=== PATIENT | female | born 1990 | race Caucasian/White ===

== ENCOUNTER 2016-12-22 23:35 | Emergency (ER) | payer MEDICAID ==
[~2016-12-22] VITALS: Ht 162.6 cm; Wt 60.0 kg
[~2016-12-22 23:35] MED LIST: ALPR-475 PO; FLUO20CA8 PO; HYDR25CA94 PO; LORA-446 PO; NITR100C PO; QUET100T4 PO
[2016-12-23] MEDS ORDERED: ONDANSETRON 2MG/ML, 2ML ONE (00:18)
[2016-12-23] MEDS ORDERED: HYDROmorphone 1 MG/ML, 1ML ONE ×2 (00:18→01:38)
[2016-12-23] MEDS: HYDROmorphone 1 MG/ML, 1ML IVPush PRN ×2 (00:22→01:40)
[2016-12-23] MEDS ORDERED: SODIUM CHLORIDE FLUSH 10ML SYR IVF ONE (00:30)
[2016-12-23] MEDS ORDERED: ONDANSETRON 2MG/ML, 2ML IVPush ONE (00:30)
[2016-12-23] MEDS ORDERED: SODIUM CHLORIDE 0.9% 1,000ML IVBOLUS ONE (00:30)
[2016-12-23 00:45] LABS: HEMOGLOBIN 12.2 g/dL (11.7-16.4)
[2016-12-23 00:57] LABS: BLOOD UREA NITROGEN 8 mg/dL (7-18)
[2016-12-23 01:02] LABS: ASPARTATE AMINO TRANSFERASE 16 U/L (15-37)
[2016-12-23 02:22] VITALS: BP 123/81
== END 2016-12-23 02:25 | disposition home or self-care (01) ==
LOC: ED 12-23 00:24
DX: N39.0 Urinary tract infection, site not specified (principal); R10.84 Generalized abdominal pain
CPT/HCPCS: 36415; 80053; 81001; 83690; 84703; 85025; 87086; 96361; 96374; 96375; 96376; 99284; J1170; J2405; J7030

== ENCOUNTER 2016-12-25 22:33 | Emergency (ER) | payer MEDICAID ==
[~2016-12-25] VITALS: Ht 160 cm; Wt 45.0 kg
[2016-12-25] MEDS ORDERED: MORPHINE SULFATE 4 MG/ML, 1ML ONE ×2 (22:57→23:43)
[2016-12-25] MEDS ORDERED: ONDANSETRON 2MG/ML, 2ML ONE (22:57)
[2016-12-25] MEDS ORDERED: SODIUM CHLORIDE FLUSH 10ML SYR IVF ONE (23:00)
[2016-12-25] MEDS ORDERED: ONDANSETRON 2MG/ML, 2ML IVPush ONE (23:00)
[2016-12-25] MEDS ORDERED: SODIUM CHLORIDE 0.9% 1,000ML IVBOLUS ONE (23:00)
[2016-12-25] MEDS ORDERED: MORPHINE SULFATE 4 MG/ML, 1ML IVPush PRN (23:00)
[2016-12-25 23:19] LABS: HEMOGLOBIN 11.7 g/dL (11.7-16.4)
[2016-12-25 23:28] LABS: ASPARTATE AMINO TRANSFERASE 12 U/L (15-37); BLOOD UREA NITROGEN 8 mg/dL (7-18)
[2016-12-25] MEDS ORDERED: PROMETHAZINE 25 MG/ML, 1ML ONE (23:44)
[2016-12-26] MEDS ORDERED: PROMETHAZINE 25 MG/ML, 1ML IM ONE
[2016-12-26] MEDS ORDERED: morphine SULFATE 10 MG/ML, 1ML IVPush ONE
[2016-12-26] MEDS ORDERED: DICY10CA3 PO (00:03)
[2016-12-26 00:34] VITALS: BP 116/76
[2016-12-27] MEDS ORDERED: ONDA4TAB10 PO (07:31)
== END 2016-12-26 00:35 | disposition home or self-care (01) ==
LOC: ED 23:23
DX: R10.31 Right lower quadrant pain (principal); G89.29 Other chronic pain; F41.1 Generalized anxiety disorder; Z98.890 Other specified postprocedural states; Z87.440 Personal history of urinary (tract) infections
CPT/HCPCS: 36415; 80053; 84703; 85025; 96361; 96372; 96374; 96375; 96376; 99284; J2270; J2405; J2550; J7030

== ENCOUNTER 2016-12-29 09:37 | Emergency (ER) | payer MEDICAID ==
[~2016-12-29] VITALS: Ht 165.1 cm; Wt 51.0 kg
[~2016-12-29 09:37] MED LIST changes: +DICY10CA3 PO; +ONDA4TAB10 PO
[2016-12-29] MEDS ORDERED: SODIUM CHLORIDE FLUSH 10ML SYR IVF ONE (10:00)
[2016-12-29] MEDS ORDERED: SODIUM CHLORIDE 0.9% 1,000ML IVBOLUS ONE (10:00)
[2016-12-29] MEDS ORDERED: FAMOTIDINE 20 MG/2 ML IVP ONE (10:00)
[2016-12-29] MEDS ORDERED: ONDANSETRON 2MG/ML, 2ML IVPush ONE (10:00)
[2016-12-29 10:22] LABS: ASPARTATE AMINO TRANSFERASE 19 U/L (15-37); BLOOD UREA NITROGEN 9 mg/dL (7-18)
[2016-12-29] MEDS ORDERED: ONDANSETRON 2MG/ML, 2ML ONE (10:29)
[2016-12-29] MEDS ORDERED: FAMOTIDINE 20 MG/2 ML ONE (10:30)
[2016-12-29] MEDS ORDERED: METOCLOPRAMIDE 5 MG/ML, 2ML ONE (12:54)
[2016-12-29] MEDS ORDERED: LORazepam 2 MG/ML, 1ML ONE (12:56)
[2016-12-29] MEDS ORDERED: LORazepam 2 MG/ML, 1ML IVPush ONE (13:00)
[2016-12-29] MEDS ORDERED: METOCLOPRAMIDE 5 MG/ML, 2ML IVPush ONE (13:00)
[2016-12-29 14:57] VITALS: BP 97/68
== END 2016-12-29 15:00 | disposition home or self-care (01) ==
LOC: ED 10:11
DX: R10.84 Generalized abdominal pain (principal); F43.10 Post-traumatic stress disorder, unspecified; F41.1 Generalized anxiety disorder; G89.29 Other chronic pain; M54.9 Dorsalgia, unspecified; Z88.6 Allergy status to analgesic agent; Z88.1 Allergy status to other antibiotic agents; Z88.8 Allergy status to other drugs, medicaments and biological substances; Z87.891 Personal history of nicotine dependence
CPT/HCPCS: 36415; 74176; 80053; 83690; 84703; 85025; 96361; 96374; 96375; 99285; J2060; J2405; J2765; J7030; S0028

== ENCOUNTER 2016-12-31 12:29 | Emergency (ER) | payer MEDICAID ==
[~2016-12-31] VITALS: Ht 165.1 cm; Wt 51.0 kg
[2016-12-31] MEDS ORDERED: HYDROmorphone 1 MG/ML, 1ML ONE (12:55)
[2016-12-31] MEDS ORDERED: ONDANSETRON 2MG/ML, 2ML ONE ×2 (12:55→14:35)
[2016-12-31] MEDS ORDERED: HYDROmorphone 1 MG/ML, 1ML IV ONE (13:00)
[2016-12-31] MEDS ORDERED: ONDANSETRON 2MG/ML, 2ML IVPush ONE ×2 (13:00→14:30)
[2016-12-31] MEDS ORDERED: SODIUM CHLORIDE FLUSH 10ML SYR IVF ONE (13:00)
[2016-12-31 13:10] LABS: HEMOGLOBIN 12.3 g/dL (11.7-16.4)
[2016-12-31 13:22] LABS: BLOOD UREA NITROGEN 15 mg/dL (7-18)
[2016-12-31] MEDS ORDERED: METOCLOPRAMIDE 5 MG/ML, 2ML IVPush ONE (14:30)
[2016-12-31] MEDS ORDERED: METOCLOPRAMIDE 5 MG/ML, 2ML ONE (14:35)
[2016-12-31 18:07] VITALS: BP 135/96
== END 2016-12-31 18:10 | disposition home or self-care (01) ==
LOC: ED 12:43
DX: R10.31 Right lower quadrant pain (principal); F43.10 Post-traumatic stress disorder, unspecified; F32.9 Major depressive disorder, single episode, unspecified; F41.9 Anxiety disorder, unspecified; G89.29 Other chronic pain; M54.9 Dorsalgia, unspecified; F19.10 Other psychoactive substance abuse, uncomplicated; Z87.891 Personal history of nicotine dependence
CPT/HCPCS: 36415; 74020; 74177; 80048; 82040; 84703; 85025; 93975; 96374; 96375; 96376; 99285; J1170; J2405; J2765

== ENCOUNTER 2017-02-13 14:18 | Emergency (ER) | payer MEDICAID ==
[~2017-02-13] VITALS: Ht 165.1 cm; Wt 50.0 kg
[2017-02-13 14:20] VITALS: BP 136/93
[2017-02-13] MEDS ORDERED: SODIUM CHLORIDE FLUSH 10ML SYR IVF ONE (14:30)
[2017-02-13] MEDS ORDERED: SODIUM CHLORIDE 0.9% 1,000ML IVBOLUS ONE (14:30)
[2017-02-13] MEDS ORDERED: ONDANSETRON 2MG/ML, 2ML IVPush ONE (14:30)
== END 2017-02-13 16:26 | disposition left against medical advice (07) ==
LOC: ED 16:15
DX: R10.31 Right lower quadrant pain (principal)
CPT/HCPCS: 99284

== ENCOUNTER 2017-02-16 22:47 | Inpatient (IN) | payer MEDICAID ==
[~2017-02-16] VITALS: Ht 165.1 cm; Wt 51.2 kg
[2017-02-16 01:00] VITALS: BP 128/74
[2017-02-16] MEDS ORDERED: ONDANSETRON 2MG/ML, 2ML ONE (22:58)
[2017-02-16] MEDS ORDERED: ONDANSETRON 2MG/ML, 2ML IVPush ONE (23:00)
[2017-02-16] MEDS ORDERED: SODIUM CHLORIDE 0.9% 1,000ML IVBOLUS ONE ×2 (23:00→23:30)
[2017-02-16] MEDS ORDERED: PROCHLORPERAZINE 5 MG/ML, 2ML ONE (23:18)
[2017-02-16] MEDS ORDERED: LORazepam 2 MG/ML, 1ML ONE (23:19)
[2017-02-16] MEDS ORDERED: PROCHLORPERAZINE 5 MG/ML, 2ML IVPush ONE (23:30)
[2017-02-16] MEDS ORDERED: LORazepam 2 MG/ML, 1ML IVPush ONE (23:30)
[2017-02-16 23:50] LABS: ASPARTATE AMINO TRANSFERASE 13 U/L (15-37); BLOOD UREA NITROGEN 9 mg/dL (7-18)
[2017-02-17] VITALS (8 sets, daily range): BP systolic 104–213; BP diastolic 68–119
[2017-02-17] MEDS ORDERED: MORPHINE SULFATE 4 MG/ML, 1ML ONE (01:29)
[2017-02-17] MEDS ORDERED: MORPHINE SULFATE 4 MG/ML, 1ML IVPush ONE (01:30)
[2017-02-17] MEDS ORDERED: NS + 20MEQ KCL 1,000 ML IV SCH (01:47)
[2017-02-17] MEDS ORDERED: POLYETHYLENE GLYCOL 17 GM PACKET PO PRN (02:00)
[2017-02-17] MEDS ORDERED: DOCUSATE 100 MG CAPSULE PO PRN (02:00)
[2017-02-17] MEDS ORDERED: ACETAMINOPHEN 325 MG TABLET PO PRN (02:00)
[2017-02-17] MEDS ORDERED: PROMETHAZINE 25 MG/ML, 1ML IM PRN (02:00)
[2017-02-17] MEDS ORDERED: FLUO10CA13 PO (02:01)
[2017-02-17] MEDS ORDERED: OXYC5CAP4 PO (02:01)
[2017-02-17] MEDS ORDERED: PROM12.553 RC (02:01)
[2017-02-17] MEDS: morphine SULFATE 10 MG/ML, 1ML IVPush PRN ×6 (03:14→21:14)
[2017-02-17] MEDS: ONDANSETRON 2MG/ML, 2ML IVPush PRN (03:38)
[2017-02-17] MEDS: DICYCLOMINE 10 MG CAPSULE PO SCH ×5 (03:38→21:14)
[2017-02-17] MEDS: OXYcodone IR 5MG TABLET PO PRN ×5 (05:04→21:59)
[2017-02-17] MEDS: FLUOXETINE 20 MG CAPSULE PO SCH ×2 (08:44→21:14)
[2017-02-17] MEDS ORDERED: POTASSIUM CHLORIDE 40 MEQ in SODIUM CHLORIDE 0.9% 500 ML IV ONE (15:30)
[2017-02-17 16:18] LABS: ASPARTATE AMINO TRANSFERASE 10 U/L (15-37); BLOOD UREA NITROGEN 5 mg/dL (7-18)
[2017-02-17] MEDS: SUCRALFATE 1 GM/10 ML UDC PO SCH ×2 (16:50→21:14)
[2017-02-17] MEDS: PANTOPRAZOLE 40 MG IV IVPush SCH (16:50)
[2017-02-18] MEDS: morphine SULFATE 10 MG/ML, 1ML IVPush PRN ×7 (00:36→22:37)
[2017-02-18 01:16] VITALS: BP 122/83
[2017-02-18] MEDS: OXYcodone IR 5MG TABLET PO PRN ×5 (01:59→20:36)
[2017-02-18] MEDS: PANTOPRAZOLE 40 MG IV IVPush SCH ×2 (04:15→16:14)
[2017-02-18 05:22] LABS: BLOOD UREA NITROGEN 7 mg/dL (7-18)
[2017-02-18 05:26] LABS: ASPARTATE AMINO TRANSFERASE 16 U/L (15-37)
[2017-02-18] MEDS: DICYCLOMINE 10 MG CAPSULE PO SCH ×4 (06:16→20:36)
[2017-02-18 07:05] VITALS: BP 108/73
[2017-02-18] MEDS: SUCRALFATE 1 GM/10 ML UDC PO SCH ×4 (07:13→20:36)
[2017-02-18] MEDS: FLUOXETINE 20 MG CAPSULE PO SCH ×2 (07:32→20:36)
[2017-02-18] MEDS ORDERED: methylPREDNISolone SOD SUCC 40 MG/ML IV SCH (09:00)
[2017-02-18 12:08] VITALS: BP 124/84
[2017-02-18] MEDS: ONDANSETRON 2MG/ML, 2ML IVPush PRN (12:12)
[2017-02-18] MEDS ORDERED: LORazepam 2 MG/ML, 1ML IVPush PRN (16:30)
[2017-02-18 19:37] VITALS: BP 112/76
[2017-02-19] MEDS: OXYcodone IR 5MG TABLET PO PRN ×3 (01:48→10:39)
[2017-02-19 01:59] VITALS: BP 113/72
[2017-02-19] MEDS: morphine SULFATE 10 MG/ML, 1ML IVPush PRN ×2 (02:42→07:44)
[2017-02-19] MEDS: DICYCLOMINE 10 MG CAPSULE PO SCH ×2 (06:25→11:35)
[2017-02-19] MEDS: SUCRALFATE 1 GM/10 ML UDC PO SCH ×2 (06:25→11:35)
[2017-02-19 07:12] VITALS: BP 102/66
[2017-02-19] MEDS: PANTOPRAZOLE 40 MG IV IVPush SCH (07:46)
[2017-02-19] MEDS: FLUOXETINE 20 MG CAPSULE PO SCH (07:49)
[2017-02-19] MEDS ORDERED: OXYC5TAB3 PO (08:42)
[2017-02-19] MEDS ORDERED: SUCR1ORA2 PO (08:42)
[2017-02-19] MEDS ORDERED: POLY17PO5 PO (08:42)
[2017-02-19] MEDS ORDERED: OMEP-110 PO (08:46)
[2017-02-19] MEDS ORDERED: BISACODYL 10 MG SUPP PR PRN (09:00)
[2017-02-19] MEDS ORDERED: LORA-445 PO (09:05)
[2017-02-19] MEDS ORDERED: MORPHINE SULFATE 4 MG/ML, 1ML IVPush ONE (11:45)
[2017-02-19] MEDS: ONDANSETRON 2MG/ML, 2ML IVPush PRN (11:47)
== END 2017-02-19 12:05 | disposition home or self-care (01) | DRG 392 ==
LOC: ED 23:59 → EDIP 02-17 01:21 → SUATTDRO 02-17 01:30 → 3NE 02-17 02:47 → DCLOUNGE 02-19 11:54
PROVIDERS: ADMIT Family Medicine; ATTEND Internal Medicine
PROC: 30233N1 Transfusion of Nonautologous Red Blood Cells into Peripheral Vein, Percutaneous Approach (ICD-10-PCS; principal; 2017-02-17)
DX: K29.70 Gastritis, unspecified, without bleeding (principal); E44.0 Moderate protein-calorie malnutrition; Z68.1 Body mass index [BMI] 19.9 or less, adult; K50.90 Crohn's disease, unspecified, without complications; K21.9 Gastro-esophageal reflux disease without esophagitis; G89.29 Other chronic pain; F43.10 Post-traumatic stress disorder, unspecified; K31.84 Gastroparesis; D50.0 Iron deficiency anemia secondary to blood loss (chronic); E87.6 Hypokalemia; F12.90 Cannabis use, unspecified, uncomplicated; F41.9 Anxiety disorder, unspecified; Z80.42 Family history of malignant neoplasm of prostate; Z80.3 Family history of malignant neoplasm of breast; Z88.6 Allergy status to analgesic agent; Z88.2 Allergy status to sulfonamides; Z88.8 Allergy status to other drugs, medicaments and biological substances
CPT/HCPCS: 36415; 36430; 80053; 82728; 83540; 83550; 83735; 84100; 84703; 85014; 85018; 85025; 85610; 85730; 86850; 86900; 86923; 96361; 96374; 96375; J2405; J3480; C9113; J0780; J2060; J2270; J7030; J7040; P9016

== ENCOUNTER 2017-02-22 19:17 | Emergency (ER) | payer MEDICAID ==
[~2017-02-22] VITALS: Ht 165.1 cm; Wt 50.0 kg
[~2017-02-22 19:17] MED LIST changes: +FLUO10CA13 PO; +LORA-445 PO; +OMEP-110 PO; +OXYC5CAP4 PO; +OXYC5TAB3 PO; +POLY17PO5 PO; +PROM12.553 RC; +SUCR1ORA2 PO
[2017-02-22] MEDS ORDERED: SODIUM CHLORIDE 0.9% 1,000 ML IV ONE (19:33)
[2017-02-22] MEDS ORDERED: LORazepam 2 MG/ML, 1ML ONE (19:36)
[2017-02-22] MEDS ORDERED: SODIUM CHLORIDE FLUSH 10ML SYR IVF ONE (20:00)
[2017-02-22] MEDS ORDERED: SODIUM CHLORIDE 0.9% 1,000ML IVBOLUS ONE (20:00)
[2017-02-22] MEDS ORDERED: ONDANSETRON 2MG/ML, 2ML IVPush ONE (20:00)
[2017-02-22] MEDS ORDERED: LORazepam 2 MG/ML, 1ML IVPush ONE (20:00)
[2017-02-22 20:12] LABS: BLOOD UREA NITROGEN 5 mg/dL (7-18)
[2017-02-22 20:18] LABS: ASPARTATE AMINO TRANSFERASE 17 U/L (15-37)
[2017-02-22] MEDS ORDERED: PHENAZOPYRIDINE 200 MG TABLET ONE (22:24)
[2017-02-22] MEDS ORDERED: PHENAZOPYRIDINE 200 MG TABLET PO ONE (22:30)
[2017-02-22 22:42] VITALS: BP 98/61
== END 2017-02-22 22:44 | disposition home or self-care (01) ==
LOC: ED 20:05
DX: N30.00 Acute cystitis without hematuria (principal); R10.84 Generalized abdominal pain; G89.29 Other chronic pain; R11.2 Nausea with vomiting, unspecified
CPT/HCPCS: 36415; 80053; 81001; 84703; 85025; 87086; 96361; 96374; 99285; J2060; J7030

== ENCOUNTER 2017-02-23 21:38 | Emergency (ER) | payer MEDICAID ==
[~2017-02-23] VITALS: Ht 165.1 cm; Wt 50.0 kg
[2017-02-23 21:45] VITALS: BP 122/70
[2017-02-23] MEDS ORDERED: ZIPRASIDONE 20 MG INJ IM ONE ×2 (22:00→22:29)
[2017-02-23] MEDS ORDERED: METOCLOPRAMIDE 5 MG/ML, 2ML IM ONE (22:00)
[2017-02-23 22:18] LABS: ASPARTATE AMINO TRANSFERASE 13 U/L (15-37); BLOOD UREA NITROGEN 5 mg/dL (7-18)
[2017-02-23] MEDS ORDERED: METOCLOPRAMIDE 5 MG/ML, 2ML ONE (22:29)
[2017-02-23] MEDS ORDERED: POTASSIUM CHLORIDE 20 MEQ TAB.ER.PRT ONE (22:50)
[2017-02-23] MEDS ORDERED: POTASSIUM CHLORIDE 20 MEQ TAB.ER.PRT PO ONE (23:00)
== END 2017-02-23 22:59 | disposition home or self-care (01) ==
LOC: ED 21:52
DX: R10.84 Generalized abdominal pain (principal); R11.2 Nausea with vomiting, unspecified; E87.6 Hypokalemia; G89.29 Other chronic pain; K50.90 Crohn's disease, unspecified, without complications; F12.10 Cannabis abuse, uncomplicated; M54.9 Dorsalgia, unspecified; Z87.891 Personal history of nicotine dependence
CPT/HCPCS: 36415; 80053; 83690; 85025; 99284

== ENCOUNTER 2017-03-28 04:02 | Inpatient (IN) | payer MEDICAID ==
[~2017-03-28] VITALS: Ht 165.1 cm; Wt 55.0 kg
[2017-03-28] MEDS ORDERED: SODIUM CHLORIDE 0.9% 1,000 ML IV ONE (04:38)
[2017-03-28] MEDS ORDERED: SODIUM CHLORIDE 0.9% 1,000ML IVBOLUS ONE ×2 (05:00→08:30)
[2017-03-28] MEDS ORDERED: MORPHINE SULFATE 4 MG/ML, 1ML IVPush PRN (05:00)
[2017-03-28] MEDS ORDERED: FAMOTIDINE 20 MG/2 ML IVP ONE (05:00)
[2017-03-28] MEDS ORDERED: ONDANSETRON 2MG/ML, 2ML IVPush ONE (05:00)
[2017-03-28] MEDS ORDERED: FAMOTIDINE 20 MG/2 ML ONE (05:02)
[2017-03-28] MEDS ORDERED: MORPHINE SULFATE 4 MG/ML, 1ML ONE ×2 (05:02→09:57)
[2017-03-28] MEDS ORDERED: ONDANSETRON 2MG/ML, 2ML ONE ×2 (05:02→09:58)
[2017-03-28 05:18] LABS: ASPARTATE AMINO TRANSFERASE 27 U/L (15-37); BLOOD UREA NITROGEN 10 mg/dL (7-18)
[2017-03-28 05:31] LABS: PATH.CAST-FLAG NOT PRESENT; SPERM-FLAG NOT PRESENT; SRC-FLAG NOT PRESENT; XTAL-FLAG NOT PRESENT; YLC-FLAG NOT PRESENT
[2017-03-28] MEDS ORDERED: METOCLOPRAMIDE 5 MG/ML, 2ML ONE (05:48)
[2017-03-28] MEDS ORDERED: METOCLOPRAMIDE 5 MG/ML, 2ML IVPush ONE (06:00)
[2017-03-28] MEDS ORDERED: PROCHLORPERAZINE 5 MG/ML, 2ML ONE (08:07)
[2017-03-28] MEDS ORDERED: CEFTRIAXONE PMX 1GM/50ML 50 ML ONE (08:07)
[2017-03-28] MEDS ORDERED: HYDROmorphone 1 MG/ML, 1ML ONE ×2 (08:07→09:22)
[2017-03-28] MEDS: HYDROmorphone 1 MG/ML, 1ML IVPush PRN ×2 (08:17→09:25)
[2017-03-28] MEDS ORDERED: CEFTRIAXONE PMX 1GM/50ML 50 ML IVPB ONE (08:30)
[2017-03-28] MEDS ORDERED: PROCHLORPERAZINE 5 MG/ML, 2ML IVPush ONE (08:30)
[2017-03-28] MEDS ORDERED: NS + 20MEQ KCL 1,000 ML IV SCH (09:20)
[2017-03-28] MEDS ORDERED: PANTOPRAZOLE 40 MG IV IVPush SCH (09:30)
[2017-03-28] MEDS ORDERED: CEFTRIAXONE 1,000 MG in SODIUM CHLORIDE 0.9% 50 ML IV SCH (09:30)
[2017-03-28] MEDS ORDERED: ENALAPRILAT 1.25 MG/ML, 2ML IVPush PRN (09:30)
[2017-03-28] MEDS: morphine SULFATE 10 MG/ML, 1ML IVPush PRN ×5 (10:02→23:48)
[2017-03-28] MEDS: ONDANSETRON 2MG/ML, 2ML IVPush PRN ×2 (10:02→17:07)
[2017-03-28] MEDS ORDERED: HYDR-3307 PO (10:21)
[2017-03-28] MEDS ORDERED: LORazepam 2 MG/ML, 1ML ONE (10:24)
[2017-03-28] MEDS: LORazepam 2 MG/ML, 1ML IVPush PRN ×2 (10:28→18:43)
[2017-03-28] MEDS ORDERED: PROCHLORPERAZINE 5 MG/ML, 2ML IVPush PRN (10:30)
[2017-03-28 10:45] VITALS: BP 102/72
[2017-03-28] MEDS: PANTOPRAZOLE 40 MG IV IVPush SCH ×2 (13:32→20:34)
[2017-03-28 14:49] VITALS: BP 110/75
[2017-03-28 20:00] VITALS: BP 119/80
[2017-03-28 20:54] LABS: DAU SCREEN DISCLAIMER
[2017-03-29 02:00] VITALS: BP 112/79
[2017-03-29] MEDS: morphine SULFATE 10 MG/ML, 1ML IVPush PRN ×7 (02:29→20:57)
[2017-03-29] MEDS: NS + 20MEQ KCL 1,000 ML IV SCH ×2 (02:29→10:30)
[2017-03-29 05:24] LABS: ASPARTATE AMINO TRANSFERASE 14 U/L (15-37); BLOOD UREA NITROGEN 3 mg/dL (7-18)
[2017-03-29] MEDS: CEFTRIAXONE PMX 1GM/50ML 50 ML IV SCH (05:30)
[2017-03-29 07:39] VITALS: BP 125/84
[2017-03-29] MEDS: PANTOPRAZOLE 40 MG IV IVPush SCH ×2 (08:37→20:57)
[2017-03-29] MEDS ORDERED: NS + 20MEQ KCL 1,000 ML IV SCH (11:30)
[2017-03-29] MEDS ORDERED: MORPHINE SULFATE 4 MG/ML, 1ML ONE ×2 (11:47→14:53)
[2017-03-29] MEDS: LORazepam 2 MG/ML, 1ML IVPush PRN (13:00)
[2017-03-29 14:32] VITALS: BP 125/86
[2017-03-29] MEDS ORDERED: POTASSIUM CHLORIDE 80 MEQ in SODIUM CHLORIDE 0.9% 1,000 ML IV ONE (17:00)
[2017-03-29] MEDS ORDERED: POTASSIUM PHOSPHATE 44 MEQ in SODIUM CHLORIDE 0.9% 500 ML IV ONE (17:00)
[2017-03-29] MEDS ORDERED: MAGNESIUM SULFATE PMX 4GM/100M 100 ML IV ONE (17:00)
[2017-03-29 19:12] VITALS: BP 128/87
[2017-03-30] MEDS: morphine SULFATE 10 MG/ML, 1ML IVPush PRN ×3 (00:19→06:25)
[2017-03-30] MEDS ORDERED: POTASSIUM CHLORIDE 80 MEQ in SODIUM CHLORIDE 0.9% 1,000 ML IV ONE (01:00)
[2017-03-30 02:10] VITALS: BP 124/83
[2017-03-30 05:31] LABS: BLOOD UREA NITROGEN 4 mg/dL (7-18)
[2017-03-30] MEDS: CEFTRIAXONE PMX 1GM/50ML 50 ML IV SCH (05:37)
[2017-03-30] MEDS: PANTOPRAZOLE 40 MG IV IVPush SCH ×2 (08:14→21:21)
[2017-03-30 08:55] VITALS: BP 119/83
[2017-03-30] MEDS: OXYcodone IR 5MG TABLET PO PRN ×4 (09:30→21:22)
[2017-03-30] MEDS: LORazepam 2 MG/ML, 1ML IVPush PRN ×2 (09:30→19:43)
[2017-03-30] MEDS: ONDANSETRON 2MG/ML, 2ML IVPush PRN ×3 (13:21→21:22)
[2017-03-30 13:40] VITALS: BP 122/84
[2017-03-30] MEDS: FLUOXETINE 20 MG CAPSULE PO SCH ×2 (15:12→21:21)
[2017-03-30] MEDS: MORPHINE SULFATE 4 MG/ML, 1ML IVPush PRN (16:27)
[2017-03-30] MEDS: NS + 20MEQ KCL 1,000 ML IV SCH (17:37)
[2017-03-30 19:27] VITALS: BP 118/90
[2017-03-31] MEDS: MORPHINE SULFATE 4 MG/ML, 1ML IVPush PRN ×2 (00:01→08:52)
[2017-03-31] MEDS: OXYcodone IR 5MG TABLET PO PRN ×4 (01:29→14:09)
[2017-03-31] MEDS: ONDANSETRON 2MG/ML, 2ML IVPush PRN ×2 (01:29→05:30)
[2017-03-31] MEDS: NS + 20MEQ KCL 1,000 ML IV SCH ×2 (01:29→11:00)
[2017-03-31 01:38] VITALS: BP 117/83
[2017-03-31] MEDS: LORazepam 2 MG/ML, 1ML IVPush PRN (03:21)
[2017-03-31] MEDS: CEFTRIAXONE PMX 1GM/50ML 50 ML IV SCH (05:30)
[2017-03-31 07:55] VITALS: BP 113/76
[2017-03-31] MEDS ORDERED: CEFD300C37 PO (08:32)
[2017-03-31] MEDS: PANTOPRAZOLE 40 MG IV IVPush SCH (08:52)
[2017-03-31] MEDS: FLUOXETINE 20 MG CAPSULE PO SCH (08:52)
[2017-03-31 13:01] VITALS: BP 111/77
== END 2017-03-31 15:34 | disposition home or self-care (01) | DRG 871 ==
LOC: ED 05:47 → SUATTDRO 09:11 → EDIP 09:16 → 4WST 10:40
PROVIDERS: ADMIT Internal Medicine; ATTEND Internal Medicine
DX: A41.9 Sepsis, unspecified organism (principal); E43 Unspecified severe protein-calorie malnutrition; N10 Acute pyelonephritis; K50.90 Crohn's disease, unspecified, without complications; E87.6 Hypokalemia; K31.84 Gastroparesis; F12.90 Cannabis use, unspecified, uncomplicated; E83.42 Hypomagnesemia; E83.39 Other disorders of phosphorus metabolism; F43.10 Post-traumatic stress disorder, unspecified; F41.1 Generalized anxiety disorder; D50.0 Iron deficiency anemia secondary to blood loss (chronic); Z68.20 Body mass index [BMI] 20.0-20.9, adult
CPT/HCPCS: 36415; 76830; 80048; 80053; 80307; 81001; 83605; 83690; 83735; 84100; 84145; 84703; 85025; 87040; 87086; 89055; 96361; 96365; 96375; 96376; J0696; J1170; J2405; J3480; C9113; J0780; J2060; J2270; J2765; J3475; J7030; J7040; S0028

== ENCOUNTER 2017-04-04 05:13 | Emergency (ER) | payer MEDICAID ==
[~2017-04-04] VITALS: Ht 165.1 cm; Wt 51.0 kg
[~2017-04-04 05:13] MED LIST changes: +CEFD300C37 PO; +HYDR-3307 PO
[2017-04-04] MEDS ORDERED: DIPHENHYDRAMINE 50 MG/ML, 1ML ONE (05:40)
[2017-04-04] MEDS ORDERED: PROMETHAZINE 25 MG/ML, 1ML ONE (05:40)
[2017-04-04] MEDS ORDERED: FAMOTIDINE 20 MG/2 ML ONE (05:40)
[2017-04-04] MEDS ORDERED: PROMETHAZINE 25 MG/ML, 1ML IM ONE (06:00)
[2017-04-04] MEDS ORDERED: SODIUM CHLORIDE 0.9% 1,000ML IVBOLUS ONE (06:00)
[2017-04-04] MEDS ORDERED: DIPHENHYDRAMINE 50 MG/ML, 1ML IVPush ONE (06:00)
[2017-04-04] MEDS ORDERED: FAMOTIDINE 20 MG/2 ML IVP ONE (06:00)
[2017-04-04] MEDS ORDERED: SODIUM CHLORIDE FLUSH 10ML SYR IVF ONE (06:00)
[2017-04-04 06:14] LABS: ASPARTATE AMINO TRANSFERASE 35 U/L (15-37); BLOOD UREA NITROGEN 6 mg/dL (7-18)
[2017-04-04] MEDS ORDERED: HYDROmorphone 2 MG/ML, 1ML ONE (06:15)
[2017-04-04] MEDS ORDERED: HYDROmorphone 1 MG/ML, 1ML IV ONE ×2 (06:30→11:30)
[2017-04-04 10:04] VITALS: BP 95/44
[2017-04-04] MEDS ORDERED: HYDROmorphone 1 MG/ML, 1ML ONE (11:18)
[2017-04-04] MEDS ORDERED: METOCLOPRAMIDE 5 MG/ML, 2ML ONE (11:18)
[2017-04-04] MEDS ORDERED: METOCLOPRAMIDE 5 MG/ML, 2ML IVPush ONE (11:30)
== END 2017-04-04 11:54 | disposition home or self-care (01) ==
LOC: ED 05:25
DX: R10.84 Generalized abdominal pain (principal); R11.2 Nausea with vomiting, unspecified; E86.0 Dehydration; K50.90 Crohn's disease, unspecified, without complications; M19.90 Unspecified osteoarthritis, unspecified site
CPT/HCPCS: 36415; 80053; 81003; 83690; 84703; 85025; 87046; 87324; 87493; 87899; 89055; 96361; 96372; 96374; 96375; 96376; 99285; J1170; J1200; J2550; J2765; J7030; S0028